=== PATIENT | female | born 1985 | race Caucasian/White ===

== ENCOUNTER 2022-07-16 13:14 | Outpatient (CLI) | payer OTHER, SELFPAY ==
--- NOTE | ~2022-07-16 | MMUS_ITS ---
EXAMINATION: MM diagnostic tatiana RT w dayron, US breast RT limited HISTORY: Right breast lateral TECHNIQUE: ML, MLO and CC 3-D tomosynthesis images of the right breast were performed and synthetic 2 -D images were generated. CAD analysis was submitted and interpreted. High resolution upper outer and lower-outer quadrant right breast ultrasound was performed. COMPARISON: None BREAST PARENCHYMAL COMPOSITION: There are scattered areas of fibroglandular density. FINDINGS: MAMMOGRAPHIC FINDINGS: No reproducible suspicious mass is evident. No malignant calcification, skin thickening or retraction . ULTRASOUND: No suspicious mass or shadowing is detected. IMPRESSION: 1. No mammographic evidence of malignancy 2. Routine mammographic screening is recommended BI-RADS Category 1: Negative Negative mammogram and ultrasound examination does not preclude further evaluation of a clinically schwartz spicious palpable abnormality. Reviewed, dictated and finalized at location A. [facility]UR[facility] SPECIALIST IMPRESSION: 1. No mammographic evidence of malignancy 2. Routine mammographic screening is recommended BI-RADS Category 1: Negative Negative mammogram and ultrasound examination does not preclude further evaluat ion of a clinically suspicious palpable abnormality.
== END 2022-07-16 13:15 | disposition home or self-care (01) ==
PROVIDERS: PCP Family Medicine; Visit Provider Nurse Practitioner
DX: N63.10 Unspecified lump in the right breast, unspecified quadrant (principal)
CPT/HCPCS: 76642; 77061; 77065; G0279